=== PATIENT | female | born 1995 | race African-American/Black ===

== ENCOUNTER 2019-06-16 12:31 | Inpatient (IN) | payer MEDICAID, SELFPAY | END 2019-06-17 19:49 | disposition home or self-care (01) | DRG 807 | LOC: OBGYN 06-17 09:19 | PROVIDERS: Admitting Provider Obstetrics & Gynecology; PCP Nurse Practitioner; Referring Provider Obstetrics & Gynecology; Visit Provider Obstetrics & Gynecology | DX: O99.824 Streptococcus B carrier state complicating childbirth (principal); Z37.0 Single live birth; O69.81X0 Labor and delivery complicated by cord around neck, without compression, not applicable or unspecified; O70.0 First degree perineal laceration during delivery; O99.334 Smoking (tobacco) complicating childbirth; F17.210 Nicotine dependence, cigarettes, uncomplicated; Z3A.40 40 weeks gestation of pregnancy ==

== ENCOUNTER → 2020-04-08 15:49 | Outpatient (BNVA) | payer MEDICAID, SELFPAY | PROVIDERS: Visit Provider Obstetrics & Gynecology | DX: Z34.82 Encounter for supervision of other normal pregnancy, second trimester (principal); Z3A.20 20 weeks gestation of pregnancy | CPT/HCPCS: 76805 ==

== ENCOUNTER → 2020-04-16 10:50 | Outpatient (BNVA) | payer MEDICAID, SELFPAY | PROVIDERS: Visit Provider Obstetrics & Gynecology | DX: Z34.90 Encounter for supervision of normal pregnancy, unspecified, unspecified trimester (principal) | CPT/HCPCS: 80053; 80307; 81000; 85027; 86592; 86762; 86803; 86850; 86900; 87340; 87491; 87591; 87806 ==

== ENCOUNTER → 2020-05-03 13:05 | Outpatient (BNVA) | payer MEDICAID, SELFPAY | PROVIDERS: Visit Provider Obstetrics & Gynecology | DX: Z34.90 Encounter for supervision of normal pregnancy, unspecified, unspecified trimester (principal) | CPT/HCPCS: 81000 ==

== ENCOUNTER → 2020-05-31 10:49 | Outpatient (BNVA) | payer MEDICAID, SELFPAY | PROVIDERS: Visit Provider Obstetrics & Gynecology | DX: O09.32 Supervision of pregnancy with insufficient antenatal care, second trimester (principal) | CPT/HCPCS: 81000; 82950; 85027 ==

== ENCOUNTER → 2020-06-16 09:51 | Outpatient (BNVA) | payer MEDICAID, SELFPAY | PROVIDERS: Visit Provider Obstetrics & Gynecology | DX: Z34.90 Encounter for supervision of normal pregnancy, unspecified, unspecified trimester (principal) | CPT/HCPCS: 81000 ==

== ENCOUNTER → 2020-06-28 11:00 | Outpatient (BNVA) | payer MEDICAID, SELFPAY | PROVIDERS: Visit Provider Obstetrics & Gynecology | DX: Z34.90 Encounter for supervision of normal pregnancy, unspecified, unspecified trimester (principal) | CPT/HCPCS: 81000 ==

== ENCOUNTER → 2020-07-12 14:10 | Outpatient (BNVA) | payer MEDICAID, SELFPAY | PROVIDERS: Visit Provider Obstetrics & Gynecology | DX: Z34.90 Encounter for supervision of normal pregnancy, unspecified, unspecified trimester (principal) | CPT/HCPCS: 81000 ==

== ENCOUNTER → 2020-07-26 11:32 | Outpatient (BNVA) | payer MEDICAID, SELFPAY | PROVIDERS: Visit Provider Obstetrics & Gynecology | DX: O09.33 Supervision of pregnancy with insufficient antenatal care, third trimester (principal); O09.293 Supervision of pregnancy with other poor reproductive or obstetric history, third trimester; O99.333 Smoking (tobacco) complicating pregnancy, third trimester; F17.210 Nicotine dependence, cigarettes, uncomplicated; Z3A.36 36 weeks gestation of pregnancy | CPT/HCPCS: 81000; 87081 ==

== ENCOUNTER → 2020-08-02 10:40 | Outpatient (BNVA) | payer MEDICAID, SELFPAY | PROVIDERS: Visit Provider Obstetrics & Gynecology | DX: O09.33 Supervision of pregnancy with insufficient antenatal care, third trimester (principal); O99.820 Streptococcus B carrier state complicating pregnancy; Z3A.00 Weeks of gestation of pregnancy not specified | CPT/HCPCS: 81000 ==

== ENCOUNTER → 2020-08-09 10:40 | Outpatient (BNVA) | payer MEDICAID, SELFPAY | PROVIDERS: Visit Provider Obstetrics & Gynecology | DX: O09.33 Supervision of pregnancy with insufficient antenatal care, third trimester (principal); Z3A.00 Weeks of gestation of pregnancy not specified | CPT/HCPCS: 81000 ==

== ENCOUNTER → 2020-08-16 10:58 | Outpatient (BNVA) | payer MEDICAID, SELFPAY | PROVIDERS: Visit Provider Obstetrics & Gynecology | DX: O99.820 Streptococcus B carrier state complicating pregnancy (principal); Z3A.39 39 weeks gestation of pregnancy; Z20.822 Contact with and (suspected) exposure to COVID-19 | CPT/HCPCS: 81000; 87635 ==

== ENCOUNTER 2020-08-21 06:32 | Inpatient (IN) | payer MEDICAID, SELFPAY ==
[2020-08-21] VITALS (31 sets, daily range): BP systolic 114–204; BP diastolic 58–101; PULSE 59–72; RESP 18; BMI 40.3
[2020-08-21] MEDS: oxytocin 30 UNIT/500 ML BAG 600 UNIT IV (06:48)
[2020-08-21] MEDS: lactated ringers 1,000 ML 125 ML IV (06:50)
[2020-08-21] MEDS: lidocaine 2% INJ 20 mL INJECTION (07:10)
--- NOTE | 2020-08-21 07:40 | P.PCNOB_ITS ---
Delivery Note: Date of delivery: August 21, 2020 Pre-delivery diagnoses: Term Op report anesthesia: None Delivering Physician: Catracho Painter MD Estimated blood loss (mL): 500 Findings: Precipitous delivery Pre-Delivery Course: The patient is a 25yo G 3 P 1-1-0-2 with an EDC of 08/21/2020 based on 20-week ultrasound, placing her at 40 weeks who has been receiving care from [facility]. She has been experiencing painful uterine contractions for the past 4 hours. Upon examination of her arrival she was fully dilated with rupture membranes. CC: Onset of labor at term. HPI: Patient started care late in . has been complicated by tobacco use in . labs have all been normal, including negative for HIV. She was found to positive for Group B Strep from screening at 36 weeks. She has gained approximately 14 lbs since the start of care. She denies a history of HTN during . Glucose tolerance screening for gestational diabetes was negative. Delivery: Was called by the nurse notify me of the patient's arrival to labor and delivery in active labor fully dilated. Upon my arrival to the room the patient had deliver a female infant in bed without complications per the nurse. The infant was noted to have spontaneous cry and spontaneous movement of all four extremities. The cord had been clamped x 2 and cut and noted to have 2 arteries and one vein. The was on the mother's abdomen where nursing personnel were in attendance. Cord sample was then obtained. The placenta delivered intact spontaneously and the uterus was explored. 20 units of Pitocin was placed in the IV bag to firm the uterus. Examination of the cervix and vaginal vault did not reveal any lacerations. A vaginal pack was then placed. Examination of the perineum showed second-degree laceration. The laceration was repaired with 2-0 Vicryl in the normal fashion in a running non locking fashion to reapproximate the laceration in layers. The vaginal pack was then removed. The patient tolerated this procedure well, and recovered in L&D room with her . All sponge and needle counts were correct. The patient refers she plans to have a permanent sterilization after her 6-week . Post-Delivery Status: Good and stable Coding Level of Care Code Acute Deputy Chief Magistrate for Joanna Laura
[2020-08-21 07:54] LABS: Basophils # 0.1 10^3/uL (0.0-0.1); Basophils % 0.3 %; Eosinophils # 0.2 10^3/uL (0.0-0.8); Eosinophils % 1.3 %; Hematocrit 38.6 % (37.0-47.0); Hemoglobin 12.7 g/dL (11.5-15.3); Lymphocytes # 3.2 10^3/uL (0.8-4.8); Lymphocytes % 21.5 %; Mean Corpuscular HGB Conc 32.9 g/dL (30.0-36.0); Mean Corpuscular Hemoglobin 29.7 pg (28.0-34.0); Mean Corpuscular Volume 90.4 fL (81-99); Mean Platelet Volume 10.9 fL (7.4-10.4); Monocytes # 0.7 10^3/uL (0.2-0.9); Monocytes % 4.9 %; Neutrophils # 10.67 10^3/uL (1.8-7.7); Neutrophils % 71.3 %; Nucleated Red Blood Cells % 0 %; Platelet Count 234 10^3/cmm (130-400); Red Blood Count 4.27 10^6/uL (4.1-5.3); Red Cell Distribution Width 13.3 % (12.1-15.1)
[2020-08-21 08:43] LABS: Add Urine Microscopic? NO
[2020-08-21 08:57] LABS: Amphetamines Screen Urine Negative (Negative); Barbiturates Screen Urine Negative (Negative); Benzodiazepines Screen Urine Negative (Negative); Cocaine Screen Urine Negative (Negative); Opiate Screen Urine Negative (Negative); PCP Screen Urine Negative (Negative); THC Screen Urine Positive (Negative)
[2020-08-21 09:04] LABS: Bilirubin Urine Neg (Negative); Blood Urine Neg (Negative); Glucose Urine UA Norm (Normal); Ketones Urine Negative (Negative); Leukocyte Esterase Urine Negative (Negative); Nitrate Urine Negative (Negative); Protein Urine Neg (Negative); Urine Appearance Clear (CLEAR); Urine Color Yellow (Yellow); Urobilinogen Urine Norm (Negative); pH Urine 6 (5-7)
[2020-08-21 09:12] LABS: Alanine Aminotransferase 12 U/L (0-33); Albumin Level 2.9 g/dL (3.5-5.2); Alkaline Phosphatase 186 IU/L (35-105); Aspartate Amino Transferase 19 U/L (0-32); Blood Urea Nitrogen 5 mg/dL (6-20); Calcium 8.5 mg/dL (8.5-10.5); Carbon Dioxide 23 mmol/L (22-29); Chloride 101 mmol/L (98-107); Globulin 3.5 g/dL (1.3-4.6); Glomerular Filtration Rate 231.7 mL/min (90-130); Glucose 71 mg/dL (65-115); Osmolality Calculated 274 mOsm/kg (285-295); Sodium 134 mmol/L (136-145); Total Bilirubin 0.2 mg/dL (0.15-1.2); Total Protein 6.4 g/dL (6.6-8.7)
[2020-08-21 09:20] LABS: Urine Creatinine 131 mg/dL (28-217)
[2020-08-21] MEDS: ibuprofen 800 mg tablet PO ×3 (09:20→21:37)
[2020-08-21] MEDS: prenatal vitamin Capsule 1 CAP PO (09:21)
[2020-08-21] MEDS: docusate sodium 100 mg Capsule PO ×2 (09:21→17:50)
[2020-08-21] MEDS: lanolin oint 7 gm 1 APPLIC TOPICAL (09:21)
[2020-08-21] MEDS: benzocaine-menthol 78 gm Canister 1 SPRAY TOPICAL (09:21)
[2020-08-21] MEDS: HYDROcodone-acetaminophen 5-325 mg Tablet PO (09:22)
[2020-08-21 09:54] LABS: Anion Gap 14.1 (5-19); Potassium 4.1 mmol/L (3.5-5.1)
[2020-08-21 09:54] LABS: UPRO/UCREAT Ratio 0.19 mg/mg CR; Urine Protein Random 25 mg/dL
[2020-08-22] VITALS (8 sets, daily range): BP systolic 130–149; BP diastolic 79–88; PULSE 64–71; RESP 18; TEMP 36.8
[2020-08-22 01:09] LABS: Hematocrit 30.5 % (37.0-47.0); Hemoglobin 9.9 g/dL (11.5-15.3); Mean Corpuscular HGB Conc 32.5 g/dL (30.0-36.0); Mean Corpuscular Hemoglobin 30.3 pg (28.0-34.0); Mean Corpuscular Volume 93.3 fL (81-99); Mean Platelet Volume 10.1 fL (7.4-10.4); Platelet Count 217 10^3/cmm (130-400); Red Blood Count 3.27 10^6/uL (4.1-5.3); Red Cell Distribution Width 13.3 % (12.1-15.1); White Blood Count 14.3 10^3/uL (4.0-10.0)
[2020-08-22] MEDS: ibuprofen 800 mg tablet PO ×2 (08:55→14:37)
[2020-08-22] MEDS: prenatal vitamin Capsule 1 CAP PO (08:56)
[2020-08-22] MEDS: docusate sodium 100 mg Capsule PO (08:56)
--- NOTE | 2020-08-22 09:56 | PC.NURSE ---
DFS at bedside speaking with patient at this time
--- NOTE | 2020-08-22 13:15 | PM.OBGYDC ---
Discharge Providers TONGUE BINDER Date of Admission: 08/21/20 06:32 Date of Discharge: 08/22/20 Attending Provider at Admission: Catracho Painter MD Attending Provider at Discharge: Catracho Painter MD Diagnoses at Discharge Discharge Diagnosis (1) Term delivered: Status: Acute Reason for Visit Reason for Visit: CONTRACTIONS Hospital Course Hospital Course The patient is a 25yo G 3 P 1-1-0-2 with an EDC of 08/21/2020 based on 20-week ultrasound, placing her at 40 weeks who has been receiving care [place] [facility]. She has been experiencing painful uterine contractions for the past 4 hours. Upon examination of her arrival she was fully dilated with rupture membranes. CC: Onset of labor at term. HPI: Patient started care late in . has been complicated by tobacco use in . labs have all been normal, including negative for HIV. She was found to positive for Group B Strep from screening at 36 weeks. She has gained approximately 14 lbs since the start of care. She denies a history of HTN during . Glucose tolerance screening for gestational diabetes was negative. She rapidly progressed to have a precipitous spontaneous vaginal delivery without complication. She delivered a baby girl, Apgars 8/9, with a birthweight at 3080g. observation has been uneventful. She is tolerating diet well. Ambulating without difficulty. Information Peripartum Data: Delivery Method: Vaginal Physical Exam Narrative: EXAM NARRATIVE: GA; alert and oriented x 3 HEENT: normal Breasts: engorged Nipples - skin intact Lungs; clear to auscultation Heart: regular rhythm, no murmurs. Abd: Appropriately tender. BS+. Uterine fundus below umbilicus. No Fundal Tenderness. Perineum: normal lochia. Extremities: no edema, no cyanosis, no tenderness. Discharge Data Data Completed and Pending: Labs from last 24 hours 08/22/20 08/22/20 01:01 00:00 WBC 14.3 H Cancelled Corrected WBC Cancelled RBC 3.27 L Cancelled Hgb 9.9 L Cancelled Hct 30.5 L Cancelled MCV 93.3 Cancelled MCH 30.3 Cancelled MCHC 32.5 Cancelled RDW 13.3 Cancelled Plt Count 217 Cancelled MPV 10.1 Cancelled Vitals: Last Vital Signs Temp 98.3 F 08/22/20 04:13 Pulse 69 08/22/20 10:35 Resp 18 08/21/20 22:06 BP 132/87 08/22/20 10:35 Discharge Plan Discharge Patient Disposition: Home Condition: Stable Prescriptions: New acetaminophen 325 mg capsule 325 mg PO Q4H PRN (Reason: fever or pain) Qty: 60 RF: 0 docusate sodium [Colace] 100 mg capsule 100 mg PO BID Qty: 60 RF: 0 ibuprofen 800 mg tablet 800 mg PO TID PRN (Reason: pain) Qty: 60 RF: 0 ferrous sulfate 325 mg (65 mg iron) tablet 325 mg PO BID Qty: 60 RF: 0 Continued Vitamin 1 TABLET tablet 1 tab PO DAILY RF: 0 ferrous sulfate 325 mg tablet 1 tab PO DAILY RF: 0 Discharge Orders: Discharge Order (Routine); Ordered 08/22/20 Ordered By: Catracho Painter Referrals: Catracho Painter MD [Physician] - 6 Weeks Discharge Attestations TONGUE BINDER Time Spent in Discharge Care*: greater than 30 min Coding Level of Care Code Acute Aircraft Hydraulic Equipment Mechanic for Chg Fwd Diagnoses Term delivered O80
--- NOTE | 2020-08-22 16:04 | PC.NURSE ---
patient will be rooming in with baby for the night, patient was asked to call clinic tomorrow and see when her 6 week appointment is scheduled.
== END 2020-08-22 16:05 | disposition home or self-care (01) | DRG 807 ==
PROVIDERS: Admitting Provider Obstetrics & Gynecology; Visit Provider Obstetrics & Gynecology
DX: O62.3 Precipitate labor (principal); Z37.0 Single live birth; O99.824 Streptococcus B carrier state complicating childbirth; O99.334 Smoking (tobacco) complicating childbirth; F17.210 Nicotine dependence, cigarettes, uncomplicated; O70.1 Second degree perineal laceration during delivery; Z3A.40 40 weeks gestation of pregnancy
CPT/HCPCS: 36415; 51702; 59409; 80053; 80306; 81003; 82570; 84156; 84550; 85025; 85027; 99211

== ENCOUNTER → 2020-10-20 09:48 | Outpatient (BNVA) | payer MEDICAID, SELFPAY | PROVIDERS: Visit Provider Obstetrics & Gynecology | DX: Z30.09 Encounter for other general counseling and advice on contraception (principal) | CPT/HCPCS: 87635 ==

== ENCOUNTER 2020-10-26 05:38 | Day surgery (SDC) | payer MEDICAID, SELFPAY ==
[2020-10-20 09:18] VITALS: BMI 36.0
--- NOTE | 2020-10-20 10:15 | P.ANESASSM_ITS ---
Pre-Anesthetic Assessment Pre-Anesthetic Assessment: Height/Weight: Height 1.63 m Weight 95.254 kg Proposed Procedure: Operation Date: 10/26/20 08:45 Proposed Procedures p Laparoscopic Tubal Fulguration 15137 Z30.9(Not Applicable) - Dino Patel MD Was Beta Emilia taken within 24 hours: N/A Was Clonidine taken within 24 hours: N/A Social: Social History: No alcohol and No tobacco Exam: Pre-Anes Outpt Exam: alert, oriented x 3, clear to auscultation bilaterally and regular rate & rhythm Airway: Submandibular: WNL Cervical ROM: WNL MP: 2 Dentition: Full History/ROS: No significant history except as noted Metabolic: Metabolic: Morbid obesity Anesthetic Plan: ASA status: 2 Anesthesia: General Risk of > 500 ml blo od loss (7ml/kg in children): No PFSH Anesthesia PFSH: Medical History History of premature rupture of membranes Had premature rupture membranes at 35 weeks with first . Surgical History No pertinent past surgical history Family History Father Hyperlipidemia Stroke Social History Smoking and tobacco status: former smoker Quit status (tobacco): has quit using tobacco Year quit tobacco: 02/2020 Former quit date comment: Was smoking 0.5 ppd. Started age 14 Alcohol intake: never Other details last substance use: Reports using CBD oil Data Anesthesia Cardiac Studies: No Data to Display
[2020-10-26] VITALS (9 sets, daily range): BP systolic 128–165; BP diastolic 83–113; PULSE 67–99; RESP 16–18; TEMP 36.1–37.1; O2SAT 94–100
[2020-10-26] MEDS: sodium chloride 0.9% 1,000 ML 30 ML IV (06:44)
[2020-10-26] MEDS: acetaminophen 1,000 MG/100 ML PIGGYBACK 400 MG IV (06:45)
[2020-10-26] MEDS: ketorolac 30 mg/mL INJ IVP (06:45)
[2020-10-26] MEDS: gabapentin 300 mg Capsule PO (06:45)
[2020-10-26 06:47] LABS: Hematocrit 39.2 % (37.0-47.0); Hemoglobin 12.6 g/dL (11.5-15.3); Mean Corpuscular HGB Conc 32.1 g/dL (30.0-36.0); Mean Corpuscular Volume 90.3 fL (81-99); Mean Platelet Volume 10.1 fL (7.4-10.4); Platelet Count 279 10^3/cmm (130-400); Red Blood Count 4.34 10^6/uL (4.1-5.3); Red Cell Distribution Width 12.1 % (12.1-15.1); White Blood Count 7.8 10^3/uL (4.0-10.0)
--- NOTE | 2020-10-26 06:49 | P.ANESUD_ITS ---
Pre-Anesthetic Update Pre-Anesthetic Assessment: Date of Surgery/Procedure: 10/26/20 Preop Fara gnosis: Undesired fertility Proposed Procedure: Operation Date: 10/26/20 07:00 Proposed Procedures p Laparoscopic Tubal Fulguration 41006 Z30.9(Not Applicable) - Dino Patel MD Any changes to Pre-Anesthetic Assessment?: No Last Intake: Intake Last Liquid Date 10/25/20 Last Liquid Time 22:00 Last Solid Date 10/25/20 Last Solid Time 19:00 Labs Last 48hrs: Laboratory Results - last 48 hr 10/26/20 06:38 WBC 7.8 RBC 4.34 Hgb 12.6 Hct 39.2 MCV 90.3 MCH 29.0 MCHC 32.1 RDW 12.1 Plt Count 279 MPV 10.1 Vitals: Temperature 98.1 F 10/26/20 06:08 Temperature Source Temporal Artery S can 10/26/20 06:08 Pulse Rate 77 10/26/20 06:08 Pulse Rhythm 10/26/20 06:08 Pulse Strength 3+ Normal 10/26/20 06:08 Respiratory Rate 18 10/26/20 06:08 Blood Pressure 165/113 10/26/20 06:08 Blood Pressure Re n 130 10/26/20 06:08 Pulse Oximetry 97 10/26/20 06:08 Oxygen Delivery Me thod 10/26/20 06:08 Exam: Pre-Anes Outpt Exam: alert, oriented x 3, clear to auscultation bilaterally and regular rate & rhythm Cardiac Studies: No Data to Display
[2020-10-26 06:55] LABS: OR HCG Qualitative Urine Negative (Negative)
--- NOTE | 2020-10-26 06:55 | P.HPUD_ITS ---
Surgery/Procedure H&P Update DATE OF PROCEDURE: October 26, 2020 DATE H&P PERFORMED: 10/04/20 H&P UPDATE INFORMATION: I have reviewed H&P completed within last 30 days, I have examined patient prior to procedure, No changes to prior documentation and H&P is in [facility] on date indicated PREOP DIAGNOSIS: Undesired fertility PLANNED PROCEDURE: Operation Date: 10/26/20 07:00 Proposed Procedures p Laparoscopic Tubal Fulguration 00288 Z30.9(Not Applicable) - Dino Patel MD
--- NOTE | 2020-10-26 08:16 | PM.OP ---
Operative Report Date of procedure: October 26, 2020 Pre-op Diagnosis: Undesired fertility Post-op Diagnosis: Undesired fertility Procedure Done: Laparoscopic bilateral tubal ligation Specimens removed/disposition: None Surgeon: Dino Patel Stoker Installer: None Anesthesia: General Estimated blood loss (mL): 5 IV fluids (mL): 600 Complications: None Findings: Normal-appearing uterus, tubes, and ovaries. Normal-appearing retrocecal appendix. Brief History: Patient is a 25-year-old female, 3, para 2-1-0-3 who is (status post vaginal delivery on 08/21/2020). She had stated during her recent that she did not want any further children and wanted proceed with sterilization. Medicaid consent form had been signed on 05/31/2020. At this point, she is still adamant that she does not want any further children and wants to proceed with sterilization. Permanence of sterilization had been reviewed with her. Alternatives had been reviewed. Risks of the surgery including failure rate and risk for ectopic were reviewed. Questions were answered. She wishes to proceed with fulguration of the tubes. Procedure: Patient was taken to the operating room were general anesthesia was obtained. She was prepped and draped in the usual sterile fashion in the dorsal supine position with legs in Parker style stirrups. Sequential compression boots were placed prior to starting the case. Catheter was inserted and bladder was drained. Exam under anesthesia was performed and patient was found to have first-degree uterine prolapse. Weighted speculum was placed in the vagina and the cervix was grasped with a single-tooth tenaculum. A ZUMI was placed. The infraumbilical region was injected with 1% lidocaine with epinephrine. Skin incision was made with the knife in the lower edge of the navel and a size 5 trocar and sheath were inserted under direct visualization using an Optiview type technique. Trocar was removed and replaced with a laparoscope confirming intra-abdominal placement. The abdomen was inflated with carbon dioxide. The anterior abdominal wall was inspected. No adhesions were noted. Approximately 2 cm above the pubic symphysis in the midline, the skin was injected with 1% lidocaine with epinephrine. Skin incision was made with a knife and a 5 mm trocar and sheath were inserted under direct visualization. The pelvis was thoroughly inspected and was normal in appearance. Appendix was identified and was normal in appearance. It was retrocecal. On the right side, an approximate 2 cm segment of fallopian tube and underlying mesosalpinx was cauterized along the midportion of the tube using a Kleppinger with bipolar cautery. On the left side, an approximate 2 cm segment of the fallopian tube and underlying mesosalpinx was cauterized along the midportion of the tube using the Kleppinger with bipolar cautery. Care was taken not to damage other structures in the process. The abdomen was deflated and the ports removed. The 5 mm sites were closed with single stitches of 4-0 Vicryl suture. Steri-Strips were applied. The ZUMI was removed and there was minimal bleeding from the tenaculum site. Patient tolerated the procedure well. Sponge, needle and instrument counts were correct. DRAINS: None POSTOPERATIVE STATUS: The patient was transferred to the recovery room in satisfactory condition. DISPOSITION: Discharge to home when criteria was met. FOLLOWUP APPOINTMENT: Followup appointment is scheduled in my office on 11/08/2020. MEDICATIONS: Patient received prescriptions for: [place] 5/325, 1 to 2 tablets every 6 hours as needed for pain, #10, 0 refills She is to continue her usual home medications.
[2020-10-26] MEDS: scopolamine 1.5 Patch 1 PATCH TRANSDERMA (09:27)
[2020-10-26] MEDS: ondansetron 2 mg/ML SDV 2 mL 4 MG IVP (09:27)
== END 2020-10-26 10:01 | disposition home or self-care (01) ==
PROVIDERS: Visit Provider Obstetrics & Gynecology
PROC: (CPT 58670; principal; 2020-10-26 07:00)
DX: Z30.2 Encounter for sterilization (principal); Z87.891 Personal history of nicotine dependence
CPT/HCPCS: 58661; 36415; 81025; 84703; 85027; 96374; J1100; J1885; J2405; J2704; J2710; J3010; J3490; J7030

== ENCOUNTER → 2021-12-28 14:50 | Outpatient (BNVA) | payer MEDICAID, SELFPAY | PROVIDERS: Visit Provider Nurse Practitioner Women's Health | DX: Z01.419 Encounter for gynecological examination (general) (routine) without abnormal findings (principal) | CPT/HCPCS: 88175 ==

== ENCOUNTER 2024-12-04 12:52 | Emergency (ER) | payer MEDICAID, SELFPAY ==
[2024-12-04 12:54] VITALS: BP 136/87; PULSE 87; RESP 18; TEMP 36.7; O2SAT 100
--- NOTE | 2024-12-04 12:55 | ECG_ITS ---
[facility] Test Date: 2024-12-04 Pat Name: Madison Maldonado Department: Room: Gender: Female Unix Engineer: : 1995 Requested By: Juice Houser Order Number: [id number] Douglas MD: Shauna Verdin M.D. Measurements Intervals [place] Rate: 84 P: 71 IA: 171 QRS: 61 QRSD: 77 T: 53 QT: 350 QTc: 415 Interpretive Statements SINUS RHYTHM No previous ECG available for comparison Electronically Signed On 12-04-2024 17:44:49 CDT by Shauna Verdin M.D. [id number]
--- NOTE | 2024-12-04 12:58 | XRR_ITS ---
PROCEDURE INFORMATION: Exam: XR Chest Exam date and time: 12/04/2024 1:03 PM Age: 29 years old Clinical indication: Cough and dyspnea; Additional info: Dyspnea/cough TECHNIQUE: Imaging protocol: Radiologic exam of the chest. Views: 1 view. COMPARISON: No relevant prior studies available. FINDINGS: Lungs: Unremarkable. No consolidation. Pleural spaces: Unremarkable. No pleural effusion. No pneumothorax. Heart/Mediastinum: Unremarkable. No cardiomegaly. Bones/joints: Unremarkable. XR/XR chest 1V portable [id number] IMPRESSION: No acute findings.
[2024-12-04 13:14] VITALS: BP 136/87; PULSE 71; RESP 16; O2SAT 99
[2024-12-04 13:20] LABS: Basophils # 0.1 10^3/uL (0.0-0.1); Basophils % 0.8 %; Eosinophils # 0.2 10^3/uL (0.0-0.8); Hematocrit 33.4 % (36-47); Lymphocytes # 2.2 10^3/uL (0.8-4.8); Lymphocytes % 32.6 %; Mean Corpuscular HGB Conc 32.3 g/dL (30-55); Mean Corpuscular Hemoglobin 24.9 pg (27-33); Mean Corpuscular Volume 77.1 fl (85-98); Mean Platelet Volume 9.1 fL (7.4-10.4); Monocytes # 0.5 10^3/uL (0.2-0.9); Monocytes % 7.4 %; Nucleated Red Blood Cells % 0 %; Platelet Count 286 10^3/cmm (157-399); Red Blood Count 4.33 10^6/uL (3.85-5.65); Red Cell Distribution Width 17.2 % (12.1-15.1)
[2024-12-04 13:37] LABS: Alanine Aminotransferase 12 U/L (0-33); Albumin Level 3.6 g/dL (3.5-5.2); Alkaline Phosphatase 89 U/L (35-105); Anion Gap 15.9 (5-19); Aspartate Amino Transferase 16 U/L (0-32); Blood Urea Nitrogen 7 mg/dL (6-20); Calcium 9.3 mg/dL (8.5-10.5); Carbon Dioxide 24 mmol/L (22-29); Chloride 103 mmol/L (98-107); Glomerular Filtration Rate 141.1 mL/min (90-130); Glucose 114 mg/dL (65-115); Osmolality Calculated 287 mOsm/kg (285-295); Potassium 3.9 mmol/L (3.5-5.1); Sodium 139 mmol/L (136-145); Total Bilirubin 0.2 mg/dL (0.15-1.2); Total Protein 7.6 g/dL (6.6-8.7)
[2024-12-04 14:13] VITALS: O2SAT 97
[2024-12-04 14:17] LABS: Troponin(5th) Baseline < 6 ng/L (0-10)
[2024-12-04 15:00] VITALS: BP 123/80; O2SAT 93
--- NOTE | 2024-12-04 15:04 | ED_ITS ---
HPI - Chest Pain 2 General: Chief Complaint: Chest Pain Stated Complaint: chest pain - anxiety Time Seen by Provider: 12/04/24 12:58 History of Present Illness: 29-year-old female presents to the [facility] room states she had chest pain intermittently for the last several weeks worse when she takes a deep breath. At times radiates into her arm. She has not noticed anything other than the breathing that exacerbates or relieves it. No diaphoresis, no associated shortness of breath. Associated symptoms: Deny abdominal pain, dyspnea or fever(s) Related Data Previous Rx's ?Medication ?Instructions ?Recorded diclofenac sodium 75 mg 75 mg PO Q12H PRN pain #20 t abs 12/04/24 tablet,delayed release Allergies Allergy/AdvReac Type Severity Reaction Status Date / Time No Known Allergies Allergy Verified 12/04/24 12:21 Review of Systems 2 Const: Denies: fever(s) or chills Card: Reports: chest pain (With inspiration) Resp: Denies: dyspnea GI: Denies: abdominal pain : Denies: dysuria, urinary frequency or urinary urgency Musc: Denies: neck pain or back pain Skin/Breast: Denies: rash PFSH ED 2 PFSH: Medical History No pertinent past medical history neghx: htn,dm,thyroid,dvt/pe PCP: None History of premature rupture of membranes Had premature rupture membranes at 35 weeks with first . Surgical History S/P tubal ligation (10/26/20) Laparoscopic tubal fulguration. Performed by Dr. Patel at [facility] in [place], [place]. Family History Father Hyperlipidemia Stroke Denies family history of Colon cancer Ovarian cancer Diabetes Heart disease Breast cancer Hypertension Uterine cancer Thyroid disease Social History Substance/Drug Use: never Physical Exam 2 Const: GENERAL APPEARANCE: cooperative ORIENTATION/CONSCIOUSNESS: Yes awake, Yes oriented to person, Yes oriented to place and Yes oriented to time HENMT: COMMON NORMALS: normocephalic, atraumatic and hearing grossly normal bilaterally HEAD & SCALP: normocephalic and atraumatic Resp: COMMON NORMALS: normal respiratory effort, No retractions, No use of accessory muscles and clear to auscultation bilaterally AUSCULTATION: clear to auscultation bilaterally Cardio: COMMON NORMALS: regular rate, regular rhythm and No murmurs present (Cardio) RATE: regular rate RHYTHM: regular rhythm GI: COMMON NORMALS: Soft to palpation and No hepatosplenomegaly present A USCULTATION: Yes normoactive bowel sounds PALPATION: Yes Soft to palpation, No Tenderness to palpation present (GI), No Guarding due to palpation present (GI) and Yes No hepatosplenomegaly present Extremity: COMMON NORMALS: normal to inspection, capillary refill normal, no clubbing, cyanosis or edema, no calf tenderness and no pedal edema Neuro: SENSORIUM/ORIENTATION: Yes oriented to person, Yes oriented to place and Yes oriented to time Skin: COMMON NORMALS: no rashes or lesions noted GENERAL SKIN EXAM: no rashes or lesions noted Course 2 Vital Signs: Vital signs: Vital Signs Temperature 98.1 F 12/04/24 12:54 Pulse Rate 71 12/04/24 13:14 Respiratory Rate 16 12/04/24 13:14 Blood Pressure 123/80 12/04/24 15:00 Pulse Oximetry 93 12/04/24 15:00 Oxygen Delivery Me thod Room Air 12/04/24 12:54 MDM - Chest Pain Medical Decision Making After several weeks chest pain she has undetectable troponin EKG does not show any acute change. Will discharge patient with diclofenac to use as needed if symptoms change recheck Medical Records I reviewed the patient's medical records. Lab Data I reviewed the patient's lab results. 12/04/24 13:16 12/04/24 13:16 Radiology Impressions Chest X-Ray 12/04/24 12:58 IMPRESSION: No acute findings. Laboratory Results WBC 6.60 10^3/uL (3.29-11.43) 12/04/24 13:16 RBC 4.33 10^6/uL (3.85-5.65) 12/04/24 13:16 Hgb 10.80 g/dL (11.27-16.99) L 12/04/24 13:16 Hct 33.4 % (36-47) L 12/04/24 13:16 MCV 77.1 fl (85-98) L 12/04/24 13:16 MCH 24.9 pg (27-33) L 12/04/24 13:16 MCHC 32.3 g/dL (30-55) 12/04/24 13:16 RDW 17.2 % (12.1-15.1) H 12/04/24 13:16 Plt Count 286 10^3/cmm (157-399) 12/04/24 13:16 MPV 9.1 fL (7.4-10.4) 12/04/24 13:16 Neut % (Auto) 56.0 % 12/04/24 13:16 Lymph % (Auto) 32.6 % 12/04/24 13:16 [place]ff[place] % (Auto) 7.4 % 12/04/24 13:16 Eos % (Auto) 3.0 % 12/04/24 13:16 Baso % (Auto) 0.8 % 12/04/24 13:16 Neut # (Auto) 3.70 10^3/uL (1.8-7.7) 12/04/24 13:16 Lymph # (Auto) 2.2 10^3/uL (0.8-4.8) 12/04/24 13:16 [place]duff[place] # (Auto) 0.5 10^3/uL (0.2-0.9) 12/04/24 13:16 Eos # (Auto) 0.2 10^3/uL (0.0-0.8) 12/04/24 13:16 Baso # (Auto) 0.1 10^3/uL (0.0-0.1) 12/04/24 13:16 Nucleated RBC % (auto) 0 % 12/04/24 13:16 Nucleated RBCs # 0.0 /100WBC 12/04/24 13:16 Sodium 139 mmol/L (136-145) 12/04/24 13:16 Potassium 3.9 mmol/L (3.5-5.1) 12/04/24 13:16 Chloride 103 mmol/L (98-107) 12/04/24 13:16 Carbon Dioxide 24 mmol/L (22-29) 12/04/24 13:16 Anion Gap 15.9 (5-19) 12/04/24 13:16 BUN 7 mg/dL (6-20) 12/04/24 13:16 Creatinine 0.6 mg/dL (0.5-0.9) 12/04/24 13:16 GFR Calculation 141.1 mL/min (90-130) H 12/04/24 13:16 Glucose 114 mg/dL (65-115) 12/04/24 13:16 Calculated Osmolality 287 mOsm/kg (285-295) 12/04/24 13:16 Calcium 9.3 mg/dL (8.5-10.5) 12/04/24 13:16 Total Bilirubin 0.2 mg/dL (0.15-1.2) 12/04/24 13:16 AST 16 U/L (0-32) 12/04/24 13:16 ALT 12 U/L (0-33) 12/04/24 13:16 Alkaline Phosphatase 89 U/L (35-105) 12/04/24 13:16 Troponin T Baseline < 6 ng/L (0-10) 12/04/24 13:16 Total Protein 7.6 g/dL (6.6-8.7) 12/04/24 13:16 Albumin 3.6 g/dL (3.5-5.2) 12/04/24 13:16 Globulin 4.0 g/dL (1.3-4.6) 12/04/24 13:16 All radiology interpretation(s) finalized by discharge EKG Data EKG 1: Interpretation: EKG December 04, 2024 ventricular rate of 84 with a sinus rhythm [place] interval 171 QTc [address] No acute ST changes noted Discharge Plan Discharge Patient Disposition: Home Clinical Impression: Atypical chest pain, Chest pain, pleuritic Condition: Stable Prescriptions: New diclofenac sodium 75 mg tablet,delayed release (DR/EC) 75 mg PO Q12H PRN (Reason: pain) Qty: 20 0RF Discharge Orders: Discharge ED (Routine); Ordered 12/04/24 Ordered By: Juice Bell Referrals: Sergio Zavaleta MD [Primary Care Provider, Family Practice] Discharge Diet: Usual diet Discharge Activity: Increase activity as tolerated Patient Instructions: Opioid Safety, Pain Management Activity Restrictions/Additional Instructions: Thank you for choosing [facility] for your healthcare needs today. It is very important that you follow up as instructed or that you return to the Emergency Department should you have concerns or if your condition changes or worsens in any way. You were seen in the emergency room with complaint of chest discomfort For several days EKG showed normal sinus rhythm without any acute changes your cardiac enzyme was negative and chest x-ray was also normal. Recommend anti- inflammatories as needed. You are also given a shot for pain while you are in the emergency room. Print Language: Belarusian Coding Level of Care Code ED Incident Analyst for Joanna Laura
[2024-12-04 15:33] VITALS: BP 123/80; PULSE 68; RESP 18; O2SAT 94
== END 2024-12-04 15:35 | disposition home or self-care (01) ==
PROVIDERS: Emergency Provider Family Medicine; PCP Family Medicine
DX: R07.89 Other chest pain (principal); R07.81 Pleurodynia
CPT/HCPCS: 36415; 71045; 80053; 84484; 85025; 93005; 99285

== ENCOUNTER 2025-02-06 12:05 | Emergency (ER) | payer MEDICAID, SELFPAY ==
[2025-02-06 12:07] VITALS: BP 142/97; PULSE 84; RESP 16; TEMP 37; O2SAT 100
--- NOTE | 2025-02-06 12:07 | XRR_ITS ---
PROCEDURE INFORMATION: Exam: XR Chest Exam date and time: 02/06/2025 12:27 PM Age: 29 years old Clinical indication: Pain; Angina pectoris; Additional info: Chest pain TECHNIQUE: Imaging protocol: Radiologic exam of the chest. Views: 1 view. COMPARISON: CR XR chest 1V portable [id number] 12/04/2024 1:03 PM FINDINGS: Lungs: No new focal infiltrates seen of the lungs. Pleural spaces: No large or obvious pneumothorax nor pleural effusion seen. Heart/Mediastinum: Stable heart size. Bones/joints: Mild curvature spine. Other findings: Patient appears rotated slightly to the right. XR/XR chest 1V portable [id number] IMPRESSION: No acute findings seen of the chest.
--- NOTE | 2025-02-06 12:07 | ECG_ITS ---
[facility] Date: 2025-02-06 Pat Name: Madison Maldonado Department: Room: Gender: Female Business Systems Lead: : 1995 Requested By: Doris Foley Order Number: [id number] Cole MD: Shauna Verdin M.D. Measurements Intervals [place] Rate: 86 P: 67 SD: 196 QRS: 54 QRSD: 88 T: 45 QT: 354 QTc: 425 Interpretive Statements SINUS RHYTHM Compared to ECG 12/04/2024 12:55:55 No significant changes Electronically Signed On 02-06-2025 14:05:36 CDT by Shauna Verdin M.D. [email or web address]
[2025-02-06 12:44] LABS: Hematocrit 33.5 % (36-47); Hemoglobin 10.50 g/dL (11.27-16.99); Mean Corpuscular HGB Conc 31.3 g/dL (30-55); Mean Corpuscular Hemoglobin 25.5 pg (27-33); Mean Corpuscular Volume 81.5 fl (85-98); Nucleated Red Blood Cells % 0 %; Platelet Count 416 10^3/cmm (157-399); Red Blood Count 4.11 10^6/uL (3.85-5.65); White Blood Count 7.64 10^3/uL (3.29-11.43)
--- NOTE | 2025-02-06 12:53 | ED_ITS ---
HPI - Chest Pain 2 General: Chief Complaint: Chest Pain Stated Complaint: cp Time Seen by Provider: 02/06/25 12:07 History of Present Illness: 29-year-old female presents to the emerg ency room with complaints of chest discomfort. She has a history of hypertension no history of coronary disease or arrhythmias. She notices a little worse if she is exerting herself better with rest. She denies any fever sweats chills or productive cough no abdominal pain no hemoptysis no history of any DVT or PE. She is pain-free at the time she is seen Associated symptoms: Deny abdominal pain, dyspnea or fever(s) Related Data Previous Rx's ?Medication ?Instructions ?Recorded diclofenac sodium 75 mg 75 mg PO Q12H PRN pain #20 t abs 12/04/24 tablet,delayed release pantoprazole 40 mg tablet,delayed 40 mg PO DAILY #40 t abs 02/06/25 release (Protonix) Allergies Allergy/AdvReac Type Severity Reaction Status Date / Time ibuprofen Allergy Unknown Unknown Verified 02/06/25 12:14 Review of Systems 2 Const: Denies: fever(s) or chills Card: Denies: chest pain Resp: Denies: dyspnea GI: Denies: abdominal pain : Denies: dysuria, urinary frequency or urinary urgency Musc: Denies: neck pain or back pain Skin/Breast: Denies: rash PFSH ED 2 PFSH: Medical History No pertinent past medical history neghx: htn,dm,thyroid,dvt/pe PCP: None History of premature rupture of membranes Had premature rupture membranes at 35 weeks with first . Surgical History S/P tubal ligation (10/26/20) Laparoscopic tubal fulguration. Performed by Dr. Patel at [facility] in [place], [place]. Family History Father Hyperlipidemia Stroke Denies family history of Colon cancer Ovarian cancer Diabetes Heart disease Breast cancer Hypertension Uterine cancer Thyroid disease Social History Smoking and tobacco/nicotine status: unknown if used tobacco/nicotine Substance/Drug Use: never Physical Exam 2 Const: COMMON NORMALS: no acute distress GENERAL APPEARANCE: cooperative and comfortable ORIENTATION/CONSCIOUSNESS: Yes awake, Yes oriented to person, Yes oriented to place and Yes oriented to time HENMT: COMMON NORMALS: normocephalic, atraumatic and hearing grossly normal bilaterally HEAD & SCALP: normocephalic and atraumatic Resp: COMMON NORMALS: normal respiratory effort, No retractions, No use of accessory muscles and clear to auscultation bilaterally AUSCULTATION: clear to auscultation bilaterally Cardio: COMMON NORMALS: regular rate, regular rhythm and No murmurs present (Cardio) RATE: regular rate RHYTHM: regular rhythm GI: COMMON NORMALS: Soft to palpation and No hepatosplenomegaly present A USCULTATION: Yes normoactive bowel sounds PALPATION: Yes Soft to palpation, No Tenderness to palpation present (GI), No Guarding due to palpation present (GI) and Yes No hepatosplenomegaly present Extremity: COMMON NORMALS: normal to inspection, capillary refill normal, no clubbing, cyanosis or edema, no calf tenderness and no pedal edema Neuro: SENSORIUM/ORIENTATION: Yes oriented to person, Yes oriented to place and Yes oriented to time Skin: COMMON NORMALS: no rashes or lesions noted GENERAL SKIN EXAM: no rashes or lesions noted Course 2 Vital Signs: Vital signs: Vital Signs Temperature 98.6 F 02/06/25 12:07 Pulse Rate 88 02/06/25 15:12 Respiratory Rate 18 02/06/25 15:12 Blood Pressure 134/86 02/06/25 15:12 Pulse Oximetry 100 02/06/25 15:12 Oxygen Delivery Me thod Room Air 02/06/25 15:12 MDM - Chest Pain Medical Decision Making EKGs unremarkable cardiac enzymes undetectable. Blood pressure resolved without any intervention. Lab Data 02/06/25 12:00 02/06/25 12:00 Radiology Impressions Chest X-Ray 02/06/25 12:07 IMPRESSION: No acute findings seen of the chest. Laboratory Results WBC 7.64 10^3/uL (3.29-11.43) 02/06/25 12:00 RBC 4.11 10^6/uL (3.85-5.65) 02/06/25 12:00 Hgb 10.50 g/dL (11.27-16.99) L 02/06/25 12:00 Hct 33.5 % (36-47) L 02/06/25 12:00 MCV 81.5 fl (85-98) L 02/06/25 12:00 MCH 25.5 pg (27-33) L 02/06/25 12:00 MCHC 31.3 g/dL (30-55) 02/06/25 12:00 RDW 15.8 % (12.1-15.1) H 02/06/25 12:00 Plt Count 416 10^3/cmm (157-399) H 02/06/25 12:00 MPV 9.5 fL (7.4-10.4) 02/06/25 12:00 Neut % (Auto) 50.6 % 02/06/25 12:00 Lymph % (Auto) 37.6 % 02/06/25 12:00 [place] % (Auto) 7.3 % 02/06/25 12:00 Eos % (Auto) 3.5 % 02/06/25 12:00 Baso % (Auto) 0.7 % 02/06/25 12:00 Neut # (Auto) 3.87 10^3/uL (1.8-7.7) 02/06/25 12:00 Lymph # (Auto) 2.9 10^3/uL (0.8-4.8) 02/06/25 12:00 [place] # (Auto) 0.6 10^3/uL (0.2-0.9) 02/06/25 12:00 Eos # (Auto) 0.3 10^3/uL (0.0-0.8) 02/06/25 12:00 Baso # (Auto) 0.1 10^3/uL (0.0-0.1) 02/06/25 12:00 Nucleated RBC % (auto) 0 % 02/06/25 12:00 Nucleated RBCs # 0.0 /100WBC 02/06/25 12:00 Sodium 139 mmol/L (136-145) 02/06/25 12:00 Potassium 4.2 mmol/L (3.5-5.1) 02/06/25 12:00 Chloride 102 mmol/L (98-107) 02/06/25 12:00 Carbon Dioxide 24 mmol/L (22-29) 02/06/25 12:00 Anion Gap 17.2 (5-19) 02/06/25 12:00 BUN 6 mg/dL (6-20) 02/06/25 12:00 Creatinine 0.5 mg/dL (0.5-0.9) 02/06/25 12:00 GFR Calculation 174.1 mL/min (90-130) H 02/06/25 12:00 Glucose 93 mg/dL (65-115) 02/06/25 12:00 Calculated Osmolality 285 mOsm/kg (285-295) 02/06/25 12:00 Calcium 9.6 mg/dL (8.5-10.5) 02/06/25 12:00 Total Bilirubin 0.2 mg/dL (0.15-1.2) 02/06/25 12:00 AST 19 U/L (0-32) 02/06/25 12:00 ALT 14 U/L (0-33) 02/06/25 12:00 Alkaline Phosphatase 94 U/L (35-105) 02/06/25 12:00 Troponin T Baseline < 6 ng/L (0-10) 02/06/25 12:00 Troponin T 120 Minute < 6.0 ng/L (0-10) 02/06/25 13:52 Delta Troponin T 0 ABS# (0-10) 02/06/25 13:52 Total Protein 8.0 g/dL (6.6-8.7) 02/06/25 12:00 Albumin 4.1 g/dL (3.5-5.2) 02/06/25 12:00 Globulin 3.9 g/dL (1.3-4.6) 02/06/25 12:00 HCG, Qual Negative (Negative) 02/06/25 12:00 All radiology interpretation(s) finalized by discharge EKG Data EKG 1: Interpretation: EKG 02/06/2025 ventricular rate 86 PA interval 196 QTc is 398. There is no acute ST changes no ST elevation or depression. Compared to EKG 12/04/2024 EKG 2: Interpretation: EKG 02/06/2025 1418 sinus rhythm no acute ST changes noted rate of 63 PA interval 191 QTc 498 compared to EKG done same day no changes Discharge Plan Discharge Patient Disposition: Home Clinical Impression: Atypical chest pain Condition: Stable Prescriptions: New pantoprazole [Protonix] 40 mg tablet,delayed release (DR/EC) 40 mg PO DAILY Qty: 40 0RF Rx Instructions: 1 p.o. twice daily x 10 days then 1 p.o. daily No Action diclofenac sodium 75 mg tablet,delayed release (DR/EC) 75 mg PO Q12H PRN (Reason: pain) Qty: 20 0RF Discharge Orders: Discharge ED (Routine); Ordered 02/06/25 Ordered By: Juice Bell Referrals: Sergio Zavaleta MD [Primary Care Provider, Family Practice] Discharge Diet: Usual diet Discharge Activity: Resume usual activity Patient Instructions: Opioid Safety, Pain Management, Patient Portal & Rohith Instructions Activity Restrictions/Additional Instructions: Thank you for choosing [facility] for your healthcare needs today. It is very important that you follow up as instructed or that you return to the Emergency Department should you have concerns or if your condition changes or worsens in any way. You are seen in the emergency room with complaints of chest discomfort. Your cardiac enzymes and EKG were normal. Suspect some of this may be GI related avoid NSAIDs such as Motrin ibuprofen or diclofenac as much as possible instead use Tylenol as needed. Instead of the omeprazole use the pantoprazole you are prescribed today 1 pill twice a day for 10 days and 1 pill daily. Print Language: Somali Coding Level of Care Code ED [place] for Joanna Laura
[2025-02-06 13:06] LABS: HCG, Serum Qual Negative (Negative); Troponin(5th) Baseline < 6 ng/L (0-10)
[2025-02-06 13:13] LABS: Alanine Aminotransferase 14 U/L (0-33); Albumin Level 4.1 g/dL (3.5-5.2); Alkaline Phosphatase 94 U/L (35-105); Anion Gap 17.2 (5-19); Aspartate Amino Transferase 19 U/L (0-32); Blood Urea Nitrogen 6 mg/dL (6-20); Calcium 9.6 mg/dL (8.5-10.5); Carbon Dioxide 24 mmol/L (22-29); Chloride 102 mmol/L (98-107); Creatinine Clr Calc Pharmacy 177.8551; Globulin 3.9 g/dL (1.3-4.6); Glucose 93 mg/dL (65-115); Osmolality Calculated 285 mOsm/kg (285-295); Potassium 4.2 mmol/L (3.5-5.1); Sodium 139 mmol/L (136-145); Total Protein 8.0 g/dL (6.6-8.7)
--- NOTE | 2025-02-06 14:07 | ECG_ITS ---
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 Measurements Intervals [place] Rate: 63 P: 55 AK: 191 QRS: 53 QRSD: 87 T: 40 QT: 388 QTc: 398 Interpretive Statements SINUS RHYTHM Compared to ECG 02/06/2025 12:19:08 No significant changes Electronically Signed On 02-07-2025 09:38:59 CDT by Alexander Santacruz M.D. [email or web address]
[2025-02-06 14:15] LABS: Troponin 5 2HR < 6.0 ng/L (0-10); Troponin 5 2HR Delta 0 ABS# (0-10)
[2025-02-06 15:12] VITALS: BP 134/86; PULSE 88; RESP 18; O2SAT 100
== END 2025-02-06 15:13 | disposition home or self-care (01) ==
PROVIDERS: Physician Assistant; Emergency Provider Family Medicine; PCP Family Medicine
DX: R07.89 Other chest pain (principal); I10 Essential (primary) hypertension
CPT/HCPCS: 36415; 71045; 80053; 84484; 84703; 85025; 93005; 99285